=== PATIENT | female | born 1935 | race Caucasian/White ===

== ENCOUNTER → 2024-03-06 13:16 | Outpatient (REF) | payer MEDICARE, BC, SELFPAY | LOC: WDC 13:16 | PROVIDERS: ATTENDING PHYSICIAN Student in an Organized Health Care Education/Training Program | DX: M48.00 Spinal stenosis, site unspecified (principal); M54.50 Low back pain, unspecified; N64.4 Mastodynia | CPT/HCPCS: 72110; 76642; 77063; 77067 ==

== ENCOUNTER → 2024-04-03 13:22 | Outpatient (REF) | payer MEDICARE, BC, SELFPAY | LOC: RAD 13:22 | PROVIDERS: ATTENDING PHYSICIAN Student in an Organized Health Care Education/Training Program | DX: I70.0 Atherosclerosis of aorta (principal) | CPT/HCPCS: 76770 ==

== ENCOUNTER → 2024-12-11 13:06 | Outpatient (REF) | payer MEDICARE, BC, SELFPAY | LOC: RAD 13:06 | PROVIDERS: ATTENDING PHYSICIAN Family Medicine | DX: R22.30 Localized swelling, mass and lump, unspecified upper limb (principal); M79.601 Pain in right arm; M25.511 Pain in right shoulder | CPT/HCPCS: 73030; 73060; 76882 ==